=== PATIENT | male | born 1955 | race Caucasian/White ===

== ENCOUNTER 2017-02-27 03:30 | Emergency (ER) | payer OTHER ==
[~2017-02-27] VITALS: Ht 185.4 cm; Wt 111.1 kg
[2017-02-27] MEDS ORDERED: BACL10TA (03:46)
[2017-02-27] MEDS ORDERED: FLUO20CA25 (03:46)
[2017-02-27] MEDS ORDERED: VALS1TAB78 (03:46)
[2017-02-27] MEDS ORDERED: CEPH-507 PO (03:53)
--- NOTE | 2017-02-27 03:53 | ED Head Injury ---
General Chief Complaint: Laceration Stated Complaint: GASH IN HEAD-WC Nursing Triage Note: patient reports was getting into a locomotive and tripped and hit head on panel , laceration noted to R side of scalp Source: patient, RN notes reviewed Exam Limitations: no limitations History of Present Illness Time seen by provider: 03:50 Initial Comments Patient presents c/ c/o puncture wound to right side of his head p/ tripping while climbing up into a locomotive shortly [employer]. Wound up falling head first into a control panel and sustaining the scalp wound. Reports the panel/ instruments are very dirty. Also needs his tetanus up dated. Denies any LOC, or any other injuries @ this time. Denies any pain. Occurred: just prior to arrival Location: parietal (right) Method of Injury: direct blow, incised (puncture) Loss of Consciousness: no loss of consciousness Associated Systoms: Denies Symptoms Allergies and Home Medications Allergies Coded Allergies: No Known Drug Allergies (Unverified , 02/27/17) Home Medications Baclofen 10 Mg Tablet, #20 (Reported) Cephalexin 500 Mg Capsule, 1,000 MG PO BID for 5 Days, #20 Ref 0 Prescribed by: JESUS TAPIA on 02/27/17 0353 Fluoxetine HCl 20 Mg Capsule, #90 (Reported) Valsartan/Hydrochlorothiazide 1 Each Tablet, #90 (Reported) Constitutional: see HPI Skin: see HPI, other (scalp puncture wound right parietal area) All Other Systems Reviewed Negative Unless Noted: Yes (Negative excepted noted.) Past Tvwgtwk-Ikbvmf-Biijgd Hx Patient Social History Alcohol Use: Occasionally Uses Recreational Drug Use: No Smoking Status: Never a Smoker Recent Foreign Travel: No Contact w/Someone Who Travel: No Recent Infectious Disease Expo: No Surgeries Surgeries: Appendectomy, Orthopedic Cardiovascular Cardiac Disorders: Hypertension Psychosocial Behavioral Health Disorders: Depression Physical Exam Vital Signs Vital Sign - Last 12Hours 02/27/17 03:41 Temp 98.2 Pulse 84 Resp 18 B/P (MAP) 162/103 Pulse Ox 98 O2 Delivery Room Air Capillary Refill : Less Than 3 Seconds General Appearance: WD/WN, no apparent distress HEENT: other (1/4 cm puncture type wound to right parietal area of scalp that is well approximated; bleeding controlled. Cleaned c/ hibiclens. Discussed c/ patient whether to place one staple or leave well enough alone. We were both comfort forgoing the staple @ this time.) Neck: normal inspection Cardiovascular: regular rate, rhythm Respiratory: no respiratory distress Psychiatric: alert, oriented x 3 Crainal Nerves: normal hearing, normal speech Skin: warm/dry, other (scalp wound (see above under HEENT)) Idalmis Coma Score Best Eye Response: (4) Open Spontaneously Best Verbal Response: (5) Oriented Best Motor Response: (6) Obeys Commands Idalmis Total: 15 Progress/Results/Core Measures Results/Orders My Orders Orders - JESUS TAPIA DO Cephalexin Capsule (Keflex Capsule) (02/27/17 04:00) Dipht,Pertuss(Acell),Tet Adult (Boostrix (02/27/17 04:00) Medications Given in ED Current Medications Medications Dose Ordered Sig/Gary Route Start Time Stop Time Status Last Admin Dose Admin Cephalexin HCl 1,000 mg ONCE ONCE PO 02/27/17 04:00 02/27/17 04:01 DC 02/27/17 03:59 1,000 MG Diphtheria/ Tetanus/Acell Pertussis 0.5 ml ONCE ONCE IM 02/27/17 04:00 02/27/17 04:01 DC 02/27/17 03:59 0.5 ML Vital Signs/I&O Vital Sign - Last 12Hours 02/27/17 02/27/17 03:41 04:03 Temp 98.2 Pulse 84 82 Resp 18 18 B/P (MAP) 162/103 Pulse Ox 98 99 O2 Delivery Room Air Blood Pressure Mean: 122 Departure Impression Impression: Primary Impression: Puncture wound of scalp without foreign body Disposition: HOME, SELF-CARE Condition: Stable Departure-Patient Inst. Decision time for Depature: 03:51 Referrals: SUMAN HA MD (PCP/Family) Primary Care Physician Patient Instructions: Diphtheria and Tetanus Toxoids, and Acellular Pertussis Vaccine, Wound Care (DC) Scripts Cephalexin (Keflex) 500 Mg Capsule 1000 MG PO BID for puncture wound for 5 Days, #20 CAP 0 Refills Prov: JESUS TAPIA DO 02/27/17 JESUS TAPIA DO Feb 27, 2017 03:53
[2017-02-27] MEDS ORDERED: CEPHALEXIN 250 MG (KEFLEX) CAP PO ONE (04:00)
[2017-02-27] MEDS ORDERED: TETANUS,DIPTH,PERTUSS P/F (BOOSTRIX) 0.5 ML VIAL IM ONE (04:00)
[2017-02-27 04:03] VITALS: BP 151/99
== END 2017-02-27 04:03 | disposition home or self-care (01) ==
LOC: EDUNIT# 03:30 → ER 03:38
DX: S01.03XA Puncture wound without foreign body of scalp, initial encounter (principal); F17.210 Nicotine dependence, cigarettes, uncomplicated; V81.4XXA Person injured while boarding or alighting from railway train or railway vehicle, initial encounter
CPT/HCPCS: 90715; 99282